=== PATIENT | female | born 1965 | race Caucasian/White ===

== ENCOUNTER 2018-01-22 13:38 | Emergency (ER) | payer OTHER ==
[~2018-01-22] VITALS: Ht 162.6 cm; Wt 131.5 kg
[2018-01-22] MEDS ORDERED: ANTIOBIOTIC (13:58)
[2018-01-22 14:38] LABS: ABSOLUTE BASOPHILS 0.1 thou/uL (0.0-0.2); ABSOLUTE EOSINOPHILS 0.1 thou/uL (0.0-0.7); ABSOLUTE LYMPHOCYTES 1.5 thou/uL (0.8-5.3); ABSOLUTE MONOCYTES 0.8 thou/uL (0.0-1.2); ABSOLUTE NEUTROPHILS 7.9 thou/uL (1.6-8.1); BASOPHILS 0.8 %; EOSINOPHILS 0.9 %; HEMATOCRIT 38.3 % (37.0-47.0); HEMOGLOBIN 12.5 gm/dL (12.0-15.0); LYMPHOCYTES 14.6 %; MCHC 32.7 g/dL (28.0-37.0); MCV 82.6 fL (80.0-100.0); MPV 8.1 fl. (7.2-11.1); NUCLEATED RBCS 0 /100WBC; PLATELET COUNT* 362 thou/uL (150-400); POLYS 75.7 %; RBC 4.64 mil/uL (4.20-5.00); RDW-CV 16.4 % (10.5-14.5); WBC 10.5 thou/uL (4.0-11.0)
[2018-01-22 14:50] LABS: ANION GAP 9 mmol/L (7-16); BUN 21 mg/dL (7-18); CALCIUM 9.4 mg/dL (8.5-10.1); CHLORIDE 101 mmol/L (98-107); CO2 31 mmol/L (21-32); CREATININE 1.1 mg/dL (0.6-1.3); GLUCOSE 113 mg/dL (70-99); POTASSIUM 4.1 mmol/L (3.5-5.1); SODIUM 141 mmol/L (136-145)
[2018-01-22 14:54] LABS: APTT 25.3 Seconds (25.0-31.3); INR 0.9; PROTIME 9.6 Seconds (9.20-11.50)
[2018-01-22 15:01] LABS: ALBUMIN 3.7 g/dL (3.4-5.0); ALKALINE PHOSPHATASE 78 U/L (46-116); NT-PRO BRAIN NAT PEPTIDE 52 pg/mL (<300); SGOT 16 U/L (15-37); SGPT 28 U/L (30-65); TOTAL BILIRUBIN 0.2 mg/dL (<0.1-1.0); TOTAL PROTEIN 7.3 g/dL (6.4-8.2); TROPONIN-I LEVEL <0.06 ng/mL (<0.06)
[2018-01-22 16:17] LABS: INFLUENZA A ANTIGEN None Detected (None Detect); INFLUENZA B ANTIGEN None Detected (None Detect)
[2018-01-22] MEDS ORDERED: GUAIFENESIN ER600 MG PO (16:42)
[2018-01-22] MEDS ORDERED: SYMBICORT160 MCG/4. INH (16:42)
[2018-01-22] MEDS ORDERED: BACTRIM DS TAB1 EACH PO (16:42)
[2018-01-22 17:09] VITALS: BP 144/81
--- NOTE | 2018-01-23 11:30 | EKG ---
[place] [address] ELECTROCARDIOGRAM REPORT Name: ETHANMELLY PHANJUAN Room: [facility]#: [id number] Admission: 01/22/18 Attend Phys: Discharge: 01/22/18 Date of : 65 Report #: [id number] THIS REPORT FOR: //name// 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 : 1965 Requested By: Nery Hadley Order Number: [id number] MD: Galileo Rousseau Measurements Intervals [place] Rate: 89 P: 54 TN: 158 QRS: 8 QRSD: 91 T: 28 QT: 354 QTc: 431 Interpretive Statements Sinus rhythm Baseline wander in lead(s) V5 No previous ECG available for comparison Electronically Signed On 01-23-2018 11:30:32 HUMAN ANATOMY TEACHER by Galileo Rousseau [email or web address] <ELECTRONICALLY SIGNED> By: Galileo Rousseau MD, [facility] 01/23/18 1130 1441 1441 Galileo Rousseau MD, FACC /EPI
== END 2018-01-22 17:10 | disposition home or self-care (01) ==
LOC: M.ERS 13:38
PROVIDERS: Nurse Practitioner Family
DX: J40 Bronchitis, not specified as acute or chronic (principal)

== ENCOUNTER 2018-03-07 13:34 | Emergency (ER) | payer OTHER ==
[~2018-03-07] VITALS: Ht 162.6 cm; Wt 131.5 kg
[~2018-03-07 13:34] MED LIST: ANTIOBIOTIC; BACTRIM DS TAB1 EACH PO; GUAIFENESIN ER600 MG PO; SYMBICORT160 MCG/4. INH
[2018-03-07 14:31] LABS: ABSOLUTE BASOPHILS 0.1 thou/uL (0.0-0.2); ABSOLUTE EOSINOPHILS 0.3 thou/uL (0.0-0.7); ABSOLUTE LYMPHOCYTES 2.2 thou/uL (0.8-5.3); ABSOLUTE MONOCYTES 0.5 thou/uL (0.0-1.2); ABSOLUTE NEUTROPHILS 4.9 thou/uL (1.6-8.1); BASOPHILS 0.9 %; EOSINOPHILS 3.8 %; HEMATOCRIT 34.6 % (37.0-47.0); HEMOGLOBIN 11.5 gm/dL (12.0-15.0); LYMPHOCYTES 27.5 %; MCH 27.5 pg (26.0-34.0); MCHC 33.1 g/dL (28.0-37.0); MCV 83.1 fL (80.0-100.0); MONOCYTES 5.8 %; MPV 7.5 fl. (7.2-11.1); NUCLEATED RBCS 0 /100WBC; PLATELET COUNT* 352 thou/uL (150-400); RBC 4.17 mil/uL (4.20-5.00); RDW-CV 16.6 % (10.5-14.5)
[2018-03-07 14:38] LABS: ANION GAP 11 mmol/L (7-16); BUN 17 mg/dL (7-18); CALCIUM 8.6 mg/dL (8.5-10.1); CHLORIDE 105 mmol/L (98-107); CO2 26 mmol/L (21-32); CREATININE 0.9 mg/dL (0.6-1.3); GLUCOSE 174 mg/dL (70-99); POTASSIUM 3.2 mmol/L (3.5-5.1); SODIUM 142 mmol/L (136-145)
[2018-03-07 14:49] LABS: ALBUMIN 3.4 g/dL (3.4-5.0); ALKALINE PHOSPHATASE 78 U/L (46-116); NT-PRO BRAIN NAT PEPTIDE 75 pg/mL (<300); SGOT 15 U/L (15-37); SGPT 20 U/L (30-65); TOTAL BILIRUBIN 0.3 mg/dL (<0.1-1.0); TOTAL PROTEIN 6.8 g/dL (6.4-8.2); TROPONIN-I LEVEL <0.06 ng/mL (<0.06)
[2018-03-07 15:19] LABS: INFLUENZA A ANTIGEN None Detected (None Detect); INFLUENZA B ANTIGEN None Detected (None Detect)
[2018-03-07] MEDS ORDERED: PROMETH-CODEIN 65 ML PO (15:26)
[2018-03-07] MEDS ORDERED: LEVAQUIN 500 M500 M2 PO (15:26)
[2018-03-07] MEDS ORDERED: MEDROLDOSEPACK PO (15:26)
[2018-03-07] MEDS ORDERED: VENTOLIN HFA 1818 GM INH (15:26)
[2018-03-07 15:39] VITALS: BP 163/111
--- NOTE | 2018-03-08 13:58 | EKG ---
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
== END 2018-03-07 15:39 | disposition home or self-care (01) ==
LOC: M.ERS 13:34
PROVIDERS: Nurse Practitioner Family
DX: J20.9 Acute bronchitis, unspecified (principal); E87.6 Hypokalemia; J45.909 Unspecified asthma, uncomplicated; Z98.890 Other specified postprocedural states

== ENCOUNTER 2018-06-29 21:13 | Emergency (ER) | payer OTHER ==
[~2018-06-29] VITALS: Ht 162.6 cm; Wt 136.1 kg
[~2018-06-29 21:13] MED LIST changes: +LEVAQUIN 500 M500 M2 PO; +MEDROLDOSEPACK PO; +PROMETH-CODEIN 65 ML PO; +VENTOLIN HFA 1818 GM INH
[2018-06-29 21:52] LABS: ABSOLUTE EOSINOPHILS 0.2 thou/uL (0.0-0.7); ABSOLUTE LYMPHOCYTES 1.8 thou/uL (0.8-5.3); ABSOLUTE MONOCYTES 0.9 thou/uL (0.0-1.2); ABSOLUTE NEUTROPHILS 7.4 thou/uL (1.6-8.1); BASOPHILS 0.4 %; EOSINOPHILS 1.5 %; HEMATOCRIT 38.2 % (37.0-47.0); HEMOGLOBIN 12.6 gm/dL (12.0-15.0); LYMPHOCYTES 17.4 %; MCH 27.1 pg (26.0-34.0); MCV 82.2 fL (80.0-100.0); MONOCYTES 8.9 %; MPV 7.8 fl. (7.2-11.1); NUCLEATED RBCS 0 /100WBC; PLATELET COUNT* 346 thou/uL (150-400); POLYS 71.8 %; RBC 4.65 mil/uL (4.20-5.00); RDW-CV 16.3 % (10.5-14.5); WBC 10.3 thou/uL (4.0-11.0)
[2018-06-29 22:07] LABS: ALBUMIN 4.2 g/dL (3.4-5.0); ALKALINE PHOSPHATASE 80 U/L (46-116); ANION GAP 10 mmol/L (7-16); BUN 20 mg/dL (7-18); CALCIUM 8.7 mg/dL (8.5-10.1); CHLORIDE 101 mmol/L (98-107); CO2 28 mmol/L (21-32); GLUCOSE 186 mg/dL (70-99); POTASSIUM 3.5 mmol/L (3.5-5.1); SGOT 15 U/L (15-37); SGPT 21 U/L (30-65); SODIUM 139 mmol/L (136-145); TOTAL BILIRUBIN 0.6 mg/dL (<0.1-1.0); TOTAL PROTEIN 7.8 g/dL (6.4-8.2); TROPONIN-I LEVEL <0.06 ng/mL (<0.06)
[2018-06-29] MEDS ORDERED: PENICILLIN V P500 MG PO (22:13)
[2018-06-29] MEDS ORDERED: HYDROCODONE-AP1 EAC6 PO (22:13)
[2018-06-29 22:45] VITALS: BP 178/84
--- NOTE | 2018-06-30 12:08 | EKG ---
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 : 1965 Requested By: Valeria Varela Order Number: [id number] MD: Pradeep Pryor Measurements Intervals [place] Rate: 93 P: 53 NM: 166 QRS: 8 QRSD: 93 T: 27 QT: 357 QTc: 445 Interpretive Statements Sinus rhythm Ventricular premature complex Compared to ECG 03/07/2018 14:32:51 Ventricular premature complex(es) now present Electronically Signed On 06-30-2018 12:08:18 CDT by Pradeep Pryor [email or web address] <ELECTRONICALLY SIGNED> By: Pradeep Pryor MD, [facility] 06/30/18 1208 49 49 Pradeep Pryor MD, FACC /EPI
== END 2018-06-29 22:33 | disposition home or self-care (01) ==
LOC: M.ERS 21:13
PROVIDERS: Nurse Practitioner Family
DX: K04.7 Periapical abscess without sinus (principal); I16.0 Hypertensive urgency

== ENCOUNTER 2018-09-04 11:58 | Emergency (ER) | payer OTHER ==
[~2018-09-04] VITALS: Ht 162.6 cm; Wt 140.6 kg
[~2018-09-04 11:58] MED LIST changes: +HYDROCODONE-AP1 EAC6 PO; +PENICILLIN V P500 MG PO
[2018-09-04 12:22] LABS: ABSOLUTE EOSINOPHILS 0.2 thou/uL (0.0-0.7); ABSOLUTE LYMPHOCYTES 1.6 thou/uL (0.8-5.3); ABSOLUTE MONOCYTES 0.6 thou/uL (0.0-1.2); ABSOLUTE NEUTROPHILS 3.7 thou/uL (1.6-8.1); BASOPHILS 0.6 %; EOSINOPHILS 3.4 %; HEMATOCRIT 35.4 % (37.0-47.0); HEMOGLOBIN 11.7 gm/dL (12.0-15.0); LYMPHOCYTES 25.8 %; MCH 27.2 pg (26.0-34.0); MCV 82.5 fL (80.0-100.0); MONOCYTES 10.1 %; MPV 7.6 fl. (7.2-11.1); NUCLEATED RBCS 0 /100WBC; PLATELET COUNT* 318 thou/uL (150-400); POLYS 60.1 %; RBC 4.29 mil/uL (4.20-5.00); RDW-CV 16.8 % (10.5-14.5); WBC 6.1 thou/uL (4.0-11.0)
[2018-09-04 12:30] LABS: ANION GAP 4 mmol/L (7-16); BUN 20 mg/dL (7-18); CALCIUM 9.1 mg/dL (8.5-10.1); CHLORIDE 107 mmol/L (98-107); CO2 31 mmol/L (21-32); GLUCOSE 115 mg/dL (70-99); POTASSIUM 4.2 mmol/L (3.5-5.1); SODIUM 142 mmol/L (136-145)
[2018-09-04 12:34] LABS: APTT 27.7 Seconds (25.0-31.3)
[2018-09-04 12:39] LABS: ALBUMIN 3.3 g/dL (3.4-5.0); ALKALINE PHOSPHATASE 69 U/L (46-116); LIPASE 135 U/L (73-393); SGOT 16 U/L (15-37); SGPT 24 U/L (30-65); TOTAL BILIRUBIN 0.3 mg/dL (<0.1-1.0); TOTAL PROTEIN 6.9 g/dL (6.4-8.2); TROPONIN-I LEVEL <0.06 ng/mL (<0.06)
[2018-09-04 14:04] VITALS: BP 145/83
--- NOTE | 2018-09-05 13:56 | EKG ---
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: : 1965 Requested By: Mkie Dhillon Order Number: [id number] MD: Rudolph Leonard Measurements Intervals [place] Rate: 80 P: 49 NC: 161 QRS: 14 QRSD: 98 T: 21 QT: 402 QTc: 464 Interpretive Statements Sinus rhythm Multiple ventricular premature complexes Compared to ECG 06/29/2018 21:50:26 No significant changes Electronically Signed On 09-05-2018 13:56:44 CDT by Rudolph Leonard [email or web address] <ELECTRONICALLY SIGNED> By: Rudolph Leonard MD, [facility] 09/05/18 1356 1212 11 Rudolph Leonard MD, FACC /EPI
== END 2018-09-04 14:05 | disposition home or self-care (01) ==
LOC: M.ERS 11:58
PROVIDERS: Family Medicine
DX: E86.0 Dehydration (principal); I10 Essential (primary) hypertension; J45.909 Unspecified asthma, uncomplicated; Z98.890 Other specified postprocedural states

== ENCOUNTER 2019-11-28 11:22 | Emergency (ER) | payer OTHER ==
[~2019-11-28] VITALS: Ht 162.6 cm; Wt 140.6 kg
[2019-11-28 13:02] LABS: ABSOLUTE BASOPHILS 0.1 thou/uL (0.0-0.2); ABSOLUTE EOSINOPHILS 0.2 thou/uL (0.0-0.7); ABSOLUTE LYMPHOCYTES 1.8 thou/uL (0.8-5.3); ABSOLUTE MONOCYTES 0.6 thou/uL (0.0-1.2); ABSOLUTE NEUTROPHILS 6.2 thou/uL (1.6-8.1); BASOPHILS 0.9 %; EOSINOPHILS 2.6 %; HEMATOCRIT 38.4 % (37.0-47.0); MCH 28.4 pg (26.0-34.0); MCV 83.7 fL (80.0-100.0); MONOCYTES 6.9 %; MPV 7.6 fl. (7.2-11.1); NUCLEATED RBCS 0 /100WBC; PLATELET COUNT* 311 thou/uL (150-400); POLYS 69.6 %; RBC 4.59 mil/uL (4.20-5.00); RDW-CV 17.5 % (10.5-14.5); WBC 8.9 thou/uL (4.0-11.0)
[2019-11-28 13:24] LABS: CALCIUM 8.8 mg/dL (8.5-10.1); POTASSIUM 3.6 mmol/L (3.5-5.1)
[2019-11-28 13:29] LABS: ALBUMIN 3.6 g/dL (3.4-5.0); TOTAL BILIRUBIN 0.4 mg/dL (<0.1-1.0); TOTAL PROTEIN 7.4 g/dL (6.4-8.2)
[2019-11-28] MEDS ORDERED: MEDROLDOSEPACK PO (13:35)
[2019-11-28] MEDS ORDERED: LOPERAMIDE 2 MG2 M1 PO (13:35)
[2019-11-28] MEDS ORDERED: ZPAK PO (13:35)
[2019-11-28] MEDS ORDERED: PROAIR HFA8.5 GM INH (13:35)
[2019-11-28 13:57] VITALS: BP 172/100
== END 2019-11-28 13:58 | disposition home or self-care (01) ==
LOC: M.ERS 11:22
PROVIDERS: Physician Assistant
DX: J18.8 Other pneumonia, unspecified organism (principal); Z20.828 Contact with and (suspected) exposure to other viral communicable diseases; R11.2 Nausea with vomiting, unspecified; I10 Essential (primary) hypertension; J45.909 Unspecified asthma, uncomplicated; Z98.890 Other specified postprocedural states

== ENCOUNTER 2019-12-23 16:44 | Emergency (ER) | payer OTHER ==
[~2019-12-23] VITALS: Ht 162.6 cm; Wt 136.1 kg
[~2019-12-23 16:44] MED LIST changes: +LOPERAMIDE 2 MG2 M1 PO; +PROAIR HFA8.5 GM INH; +ZPAK PO
[2019-12-23 18:16] LABS: ABSOLUTE MONOCYTES 0.4 thou/uL (0.0-1.2); ABSOLUTE NEUTROPHILS 4.1 thou/uL (1.6-8.1); BASOPHILS 0.8 %; EOSINOPHILS 0.4 %; HEMATOCRIT 38.1 % (37.0-47.0); HEMOGLOBIN 12.7 gm/dL (12.0-15.0); LYMPHOCYTES 18.6 %; MCH 28.1 pg (26.0-34.0); MCHC 33.3 g/dL (28.0-37.0); MCV 84.2 fL (80.0-100.0); MONOCYTES 7.4 %; MPV 7.7 fl. (7.2-11.1); NUCLEATED RBCS 0 /100WBC; PLATELET COUNT* 257 thou/uL (150-400); POLYS 72.8 %; RBC 4.52 mil/uL (4.20-5.00); WBC 5.6 thou/uL (4.0-11.0)
[2019-12-23 18:23] LABS: URINE BILIRUBIN NEGATIVE (Negative); URINE BLOOD TRACE (Negative); URINE CLARITY CLEAR; URINE COLOR YELLOW; URINE GLUCOSE-RANDOM NEGATIVE (Negative); URINE KETONES NEGATIVE (Negative); URINE LEUKOCYTES-REFLEX NEGATIVE (Negative); URINE NITRITE-REFLEX NEGATIVE (Negative); URINE PROTEIN TRACE (Negative); URINE SPECIFIC GRAVITY >= 1.030 (1.005-1.030); URINE UROBILINOGEN 0.2 E.U./dl (0.2-1.0)
[2019-12-23 18:26] LABS: CALCIUM 8.8 mg/dL (8.5-10.1); CREATININE 1.1 mg/dL (0.6-1.3); POTASSIUM 3.5 mmol/L (3.5-5.1)
[2019-12-23 18:31] LABS: ALBUMIN 3.8 g/dL (3.4-5.0); TOTAL BILIRUBIN 0.5 mg/dL (<0.1-1.0)
[2019-12-23 19:44] LABS: INFLUENZA A ANTIGEN Negative (Negative); INFLUENZA B ANTIGEN Negative (Negative)
[2019-12-23] MEDS ORDERED: PROMETHAZINE-P118 M1 PO (20:18)
[2019-12-23] MEDS ORDERED: ONDANSETRON HCL4 M2 PO (20:18)
[2019-12-23] MEDS ORDERED: DOXYCYCLINE 10100 MG PO (20:18)
[2019-12-23] MEDS ORDERED: VENTOLIN HFA 1818 GM INH (20:18)
[2019-12-23] MEDS ORDERED: MEDROLDOSEPACK PO (20:18)
[2019-12-23 20:58] VITALS: BP 174/89
--- NOTE | 2019-12-24 17:46 | EKG ---
[place] [address] ELECTROCARDIOGRAM REPORT Name: ETHAN PHANJUAN Room: [facility]#: [id number] Admission: 12/23/19 Attend Phys: Discharge: 12/23/19 Date of : 65 Date of Service: 12/23/191803 Report #: [id number] THIS REPORT FOR: //name// 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: [facility] : 1965 Requested By: Valeria Varela Order Number: [id number] MD: Pradeep Pryor Measurements Intervals [place] Rate: 112 P: 57 [place]: 169 QRS: 12 QRSD: 88 T: 27 QT: 335 QTc: 458 Interpretive Statements Sinus tachycardia Ventricular premature complex Abnormal R-wave progression, late transition Compared to ECG 09/04/2018 12:12:26 Sinus rhythm no longer present Electronically Signed On 12-24-2019 17:45:57 CDT by Pradeep Pryor [email or web address] <ELECTRONICALLY SIGNED> By: Pradeep Pryor MD, FACC 12/24/19 1745 1804 1804 Pradeep Pryor MD, FACC /EPI
== END 2019-12-23 20:58 | disposition home or self-care (01) ==
LOC: M.ERS 16:44
PROVIDERS: Nurse Practitioner Family
DX: J20.9 Acute bronchitis, unspecified (principal); Z20.828 Contact with and (suspected) exposure to other viral communicable diseases; J45.909 Unspecified asthma, uncomplicated; I10 Essential (primary) hypertension; Z98.890 Other specified postprocedural states